=== PATIENT | female | born 1970 | race Caucasian/White ===

== ENCOUNTER 2021-12-10 06:59 | Day surgery (SDC) | payer BC ==
[~2021-12-10] VITALS: Ht 162.6 cm; Wt 94.9 kg
[2021-12-10] MEDS ORDERED: PROBIOTIC ACID1 EAC3 PO (07:43)
[2021-12-10] MEDS ORDERED: NATURAL IRON65 MG (07:44)
[2021-12-10] MEDS ORDERED: MAGNESIUM500 MG PO (07:44)
[2021-12-10] MEDS ORDERED: IRON GLYCINATE29 MG PO (07:45)
[2021-12-10] MEDS ORDERED: NATURAL FISH1200 MG (07:46)
[2021-12-10] MEDS ORDERED: VITAMINC1000TA (07:46)
[2021-12-10 07:47] VITALS: BP 120/80; PULSE 66; TEMP 97.6
[2021-12-10] MEDS ORDERED: VITAMIND3 5000 PO (07:47)
[2021-12-10 08:25] VITALS: BP 114/76; PULSE 75; TEMP 97
--- NOTE | 2021-12-10 08:25 | NUR ---
PT TO BAY 4 PER CART FROM ENDO ROOM. RECEIVED REPORT. VS OBTAINED. PT DENIES ANY NEEDS AT THIS TIME.
[2021-12-10 08:40] VITALS: BP 112/69; PULSE 68
--- NOTE | 2021-12-10 08:40 | NUR ---
PT TOLERATING WATER, COFFEE, AND MUFFINS. PT DENIES ANY NEEDS AT THIS TIME.
[2021-12-10 08:55] VITALS: BP 103/77; PULSE 61
--- NOTE | 2021-12-10 09:25 | NUR ---
0900-IV DC'D AT THIS TIME. PT TOLERATED WELL. 904-DISCHARGE EDUCATION COMPLETED WITH PT. VERBALIZED UNDERSTANDING OF HOME AND FOLLOW UP CARE. ALL QUESTIONS ANSWERED. DISCHARGE PAPERWORK GIVEN TO PT. 924-PT OFF UNIT PER WHEELCHAIR. PT DISCHARGED TO HOME WITH PER PERSONAL VEHICLE.
== END 2021-12-10 09:25 | disposition home or self-care (01) ==
LOC: SDCO 06:59
DX: K63.89 Other specified diseases of intestine (principal); Z87.891 Personal history of nicotine dependence
CPT/HCPCS: J2704; J7120